=== PATIENT | male | born 1955 | race Caucasian/White ===

== ENCOUNTER 2019-12-25 14:34 | Emergency (ER) | payer MEDICARE ==
[2019-12-25] MEDS ORDERED: Ibuprofen 600 MG Tab PO ONE (15:42)
[2019-12-25] MEDS ORDERED: Acetaminophen 500 MG Tab PO ONE (15:42)
--- NOTE | 2019-12-25 15:45 | EDM.PDOC ---
ED HPI GENERAL MEDICAL PROBLEM - General Chief Complaint: Upper Extremity Injury/Pain Stated Complaint: FALL/HURT RT SHOULDER Time Seen by Provider: 12/25/19 15:40 Source of Information: Reports: Patient History Limitations: Reports: No Limitations - History of Present Illness INITIAL COMMENTS - FREE TEXT/NARRATIVE: Hever is a 64 year old male, presents to the ED today with c/o right shoulder pain, patient was working on his boat when boat was slipping, he came down onto right shoulder, he did hit his head but denies any head pain or LOC. Patient has not taken anything for pain, immobilization improves his symptoms, any movement makes pain worse. Onset: Today, Sudden Review of Systems - Review of Systems Review Of Systems: Comprehensive ROS is negative, except as noted in HPI. ED EXAM, GENERAL - Physical Exam Exam: See Below Exam Limited By: No Limitations General Appearance: Alert, WD/WN, No Apparent Distress Eye Exam: Bilateral Eye: EOMI Ears: Normal External Exam Nose: Normal Inspection Throat/Mouth: Normal Inspection Head: Atraumatic, Normocephalic Neck: Normal Inspection, Supple, Non-Tender Respiratory/Chest: No Respiratory Distress, Lungs Clear Cardiovascular: Normal Peripheral Pulses, Regular Rate, Rhythm Back Exam: Normal Inspection Extremities: Limited Range of Motion (right shoulder, TTP to right scapula, distal pulses strength intact) Neurological: Alert, Oriented, CN II-XII Intact Psychiatric: Normal Affect, Normal Mood Skin Exam: Warm, Dry, Intact, Other (small abrasion to right scapular region) Lymphatic: No Adenopathy Course - Vital Signs Last Recorded V/S: Last Vital Signs Temp 35.0 C L 12/25/19 15:58 Pulse 67 12/25/19 15:58 Resp 16 12/25/19 15:58 BP 151/78 H 12/25/19 15:58 Pulse Ox 96 12/25/19 15:58 Hever is a 64 year old male who presents to the ED with c/o right shoulder pain s/p fall. Please refer to HPI and focused exam. X-ray reveals a minimally displaced right lateral clavicle fracture. Patient updated, sling applied, RICE encouraged, ibuprofen/Tylenol for pain, declined offer for anything stronger. Patient to follow up with PCP or Ortho back in [place] in 2 weeks. Reasons to return here discussed, patient agreeable to plan of care and discharged in stable condition. - Orders/Labs/Meds Orders: Active Orders 24 hr Category Date Time Status Shoulder Comp Rt [CR] Stat Exams 12/25/19 15:42 Ordered Meds: Medications Discontinued Medications Generic Name Dose Route Start Last Admin Trade Name Quang PRN Reason Stop Dose Admin Acetaminophen 1,000 mg 12/25/19 15:42 12/25/19 15:53 Tylenol Extra Strength PO 12/25/19 15:43 1,000 mg ONETIME ONE Administration Ibuprofen 600 mg 12/25/19 15:42 12/25/19 15:52 Motrin PO 12/25/19 15:43 600 mg ONETIME ONE Administration Departure - Departure Time of Disposition: 16:30 Disposition: Home, Self-Care 01 Condition: Good Clinical Impression: Fracture of clavicle Qualifiers: Encounter type: initial encounter Clavicle location: lateral end Fracture type: closed Fracture alignment: nondisplaced Laterality: right Qualified Code(s): S42.034A - Nondisplaced fracture of lateral end of right clavicle, initial encounter for closed fracture - Discharge Information Instructions: Clavicle Fracture, [id number] Referrals: PCP,None [Primary Care Provider] - Forms: ED Department Discharge Additional Instructions: Keep sling on during the day and to sleep. Ibuprofen 600 mg every 6 hours for pain as needed can be alternated with Tylenol 650 mg every 4 hours as needed. Follow up with your primary care provider or ortho clinic in 2 weeks for recheck. Likely will take 4-6 weeks to heal until full function returns. Ice to area for 20 minutes every 2-3 hours for first 48 hours. Say hi to Erin for me!! Sepsis Event Note (ED) - Focused Exam Vital Signs: Vital Signs Temp Pulse Resp BP Pulse Ox 12/25/19 15:58 35.0 C L 67 16 151/78 H 96 12/25/19 15:22 35.0 C L 67 16 151/78 H 96 - My Orders Last 24 Hours: My Active Orders 12/25/19 15:42 Shoulder Comp Rt [CR] Stat - Assessment/Plan Last 24 Hours: My Active Orders 12/25/19 15:42 Shoulder Comp Rt [CR] Stat
--- NOTE | 2019-12-27 10:45 | CR ---
Shoulder Comp Rt CLINICAL HISTORY: Pain, fall FINDINGS: There is a displaced fracture of the distal clavicle. There is also some AC joint separation. Humerus appears intact. Impression: Displaced fracture of the distal clavicle with probable acromioclavicular ligament injury
== END 2019-12-25 17:21 | disposition home or self-care (01) ==
LOC: JP.ED 14:34
DX: S42.034A Nondisplaced fracture of lateral end of right clavicle, initial encounter for closed fracture (principal); W01.10XA Fall on same level from slipping, tripping and stumbling with subsequent striking against unspecified object, initial encounter
CPT/HCPCS: 73030; 99283; A9270; 99282